=== PATIENT | male | born 2000 | race Caucasian/White ===

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

== ENCOUNTER 2022-06-13 07:09 | Outpatient (CLI) | payer OTHER ==
[~2022-06-13 07:09] MED LIST changes: +PEPCID AC10 MG PO
== END 2022-06-13 08:00 | disposition home or self-care (01) ==
LOC: SONOGRAMA 07:09
PROVIDERS: ATTEND Pediatrics Pediatric Gastroenterology
DX: R10.9 Unspecified abdominal pain (principal)